=== PATIENT | female | born 1960 | race Caucasian/White ===

== ENCOUNTER → 2016-04-17 | Outpatient (CLI) | payer BC, OTHER ==
--- NOTE | 2016-04-20 06:23 | SLEEPHOME ---
DATE OF PROCEDURE: 04/17/2016 ORDERED BY: Den Sahni MD Diagnostic home sleep testing was performed due to concern for the obstructive sleep apnea syndrome in this patient with a history of excessive somnolence. 9 hours and 59 minutes of data were reviewed. There were 8 hours and 25 minutes identified as time in bed. During the interval marked time in bed, there were 502 respiratory events identified of 10 seconds in duration or greater for a respiratory event index of 59.5. The events were primarily obstructive but mixed and central apneas were also seen. Baseline heart rate 73 beats per minute. Pulse rate ranged 46-107. Baseline saturation 91.5%. Lowest oxygen saturation 62%. Testing was performed in both the supine and non-supine positions. IMPRESSION: Abnormal home sleep testing with repetitive respiratory events and oxygen desaturations to 62% with a respiratory event index of 59.5 is consistent with the obstructive sleep apnea syndrome. RECOMMENDATION: The patient should be referred for formal sleep evaluation and in-laboratory pressure titration.
== END ==
LOC: M SLEEP 10:49
PROVIDERS: ATTEND Internal Medicine Pulmonary Disease
DX: R40.0 Somnolence (principal)

== ENCOUNTER → 2016-07-09 | Outpatient (CLI) | payer OTHER ==
--- NOTE | 2016-07-09 16:04 | REPMRS ---
Patient History The patient states she had a clinical breast exam in 07/23 Patient has history of cervical cancer at age 42 and is nulliparous. Family history of breast cancer in paternal aunt. Taking estrogen for 5 years. Digital Woman Screen Mammo: July 09, 2016 - Exam #: [id number] Bilateral CC and MLO view(s) were taken. Technologist: Kate Preciado, Technologist Prior study comparison: June 20, 2015, digital woman screen mammo performed at [facility]. June 10, 2014, digital woman screen mammo performed at [facility]. October 22, 2012, digital woman screen mammo performed at [facility]. FINDINGS: There are scattered fibroglandular densities. There has been no change in the appearance of the mammogram from the prior studies. There is a mild amount of scattered fibroglandular density which is fairly symmetric. There is no interval development of dominant mass, architectural distortion, or clustered microcalcification suggestive of malignancy. ASSESSMENT: BI-RADS/ACR category 1 mammogram. Negative. Recommendation Routine screening mammogram in 1 year (for women over age 40). This mammogram was interpreted with the aid of an FDA-approved computer-aided dectection system. Electronically Signed By: Kwame Arcos MD 07/09/16 [id number]
== END ==
LOC: M WHC 13:00
PROVIDERS: ATTEND Nurse Practitioner Family
DX: Z12.31 Encounter for screening mammogram for malignant neoplasm of breast (principal)

== ENCOUNTER → 2016-07-09 | Outpatient (REF) | payer OTHER | LOC: M SFHCWAGY 13:44 | PROVIDERS: ATTEND Nurse Practitioner Family | DX: Z12.4 Encounter for screening for malignant neoplasm of cervix (principal) ==

== ENCOUNTER → 2017-01-28 | Outpatient (CLI) | payer OTHER ==
--- NOTE | 2017-01-28 11:58 | REP ---
MRI RIGHT ANKLE: TECHNIQUE: Sagittal proton density, STIR, axial proton density fat sat, T1, coronal proton density, STIR. The Achilles, anterior tibial, posterior tibial, flexor hallucis longus, flexor digitorum longus and peroneal tendons are all intact. Anterior and posterior talofibular, calcaneofibular and deltoid ligaments appear intact. Plantar fascia demonstrates no abnormal signal. There is no evidence of plantar fasciitis. No ganglion cyst is seen. There is a small joint effusion at the tibiotalar joint. No osteochondral lesions are seen at the tibiotalar joint. I see no other significant abnormality aside from some mild superficial soft tissue edema. IMPRESSION: No evidence of tendon or ligament tear. Small joint effusion. No osteochondral defect. Signed by Yemi Seymour MD 01/28/2017 04:31 P
== END ==
LOC: M RAD 09:04
PROVIDERS: ATTEND Podiatrist
DX: M25.471 Effusion, right ankle (principal)

== ENCOUNTER → 2017-09-16 | Outpatient (REF) | payer OTHER | LOC: M SFHCWAGY 09:46 | DX: Z08 Encounter for follow-up examination after completed treatment for malignant neoplasm (principal) | CPT/HCPCS: 88142 ==

== ENCOUNTER → 2017-09-16 | Outpatient (CLI) | payer OTHER | LOC: M WHC 09:12 | DX: Z12.31 Encounter for screening mammogram for malignant neoplasm of breast (principal) | CPT/HCPCS: 77067 ==

== ENCOUNTER → 2018-11-11 | Outpatient (CLI) | payer OTHER ==
--- NOTE | 2018-11-11 13:40 | REPMRS ---
Patient History The patient states she had a clinical breast exam in 11/2018. Patient has history of cervical cancer at age 42 and is nulliparous. Family history of breast cancer in paternal aunt, prostate cancer in maternal uncle, prostate cancer in maternal uncle, prostate cancer in maternal cousin, breast cancer at age 50 in maternal cousin, ovarian cancer at age 50 or over in maternal aunt. Taking estrogen for 7 years. 3D TOMOSYNTHESIS WAS PERFORMED. The [facility] lifetime risk for breast cancer is 16.0 %. Digital Woman Screen Mammo: November 11, 2018 - Exam #: [id number] Bilateral CC and MLO view(s) were taken. Technologist: Kate Preciado, Technologist Prior study comparison: September 16, 2017, digital woman screen mammo performed at [facility]. July 09, 2016, digital woman screen mammo performed at [facility]. FINDINGS: There are scattered fibroglandular densities. There has been no change in the appearance of the mammogram from the prior studies. There is a mild amount of residual fibroglandular tissue which is fairly symmetric. There is no interval development of dominant mass, architectural distortion, or clustered microcalcification suggestive of malignancy. Assessment: BI-RADS/ACR category 1 mammogram. Negative Mammogram. Recommendation Routine screening mammogram in 1 year (for women over age 40). This mammogram was interpreted with the aid of an FDA-approved computer-aided dectection system. Electronically Signed By: Yemi Seymour MD 11/11/18 [id number]
== END ==
LOC: M WHC 11:36
PROVIDERS: ATTEND Nurse Practitioner Family
DX: Z12.31 Encounter for screening mammogram for malignant neoplasm of breast (principal); Z92.23 Personal history of estrogen therapy; Z85.41 Personal history of malignant neoplasm of cervix uteri

== ENCOUNTER → 2018-11-11 | Outpatient (REF) | payer OTHER ==
[2018-11-13 14:51] LABS: HPV HYBRID CAPTURE II Negative (Negative)
== END ==
LOC: M SFHCWAGY 12:15
PROVIDERS: ATTEND Nurse Practitioner Family
DX: Z12.72 Encounter for screening for malignant neoplasm of vagina (principal)

== ENCOUNTER → 2020-01-05 | Outpatient (CLI) | payer OTHER ==
--- NOTE | 2020-01-13 15:16 | REP ---
BILATERAL SCREENING MAMMOGRAM WITH 3D TOMOSYNTHESIS COMPARISON MAMMOGRAM: 11/21/2018, as well as other prior exams. HISTORY: Family history of breast cancer in paternal aunt and maternal cousin. [facility]uz[facility] lifetime risk of breast cancer 15.4%. TECHNIQUE: MLO and CC views of both breasts are performed with 3D tomosynthesis. FINDINGS: There is mild scattered fibroglandular tissue bilaterally. Volpara breast density is A. There is a small, round, well-defined nodule in the lower outer right breast near the nipple best seen on tomographic images. This measures about 5-6 mm in diameter. Otherwise no mass or architectural distortion is seen bilaterally. There are no suspicious clusters of microcalcifications. Coarse benign type calcifications are scattered bilaterally. FINDINGS: ACR 0 incomplete. There is a new round well-defined nodule in the lower outer right breast near the nipple measuring 5-6 mm in diameter. Recommend spot compression views and ultrasound to further evaluate. This mammogram was interpreted with the aid of an FDA approved computer-aided detection system. The patient states her last clinical breast exam was 12/2019. Patient letter: 0. MTDD
== END ==
LOC: M WHC 09:47
PROVIDERS: ATTEND Nurse Practitioner Family
DX: R92.2 Inconclusive mammogram (principal); Z80.3 Family history of malignant neoplasm of breast

== ENCOUNTER → 2020-01-05 | Outpatient (REF) | payer OTHER | LOC: M SFHCWAGY 13:09 | PROVIDERS: ATTEND Nurse Practitioner Family | DX: Z12.72 Encounter for screening for malignant neoplasm of vagina (principal) ==

== ENCOUNTER → 2020-01-12 | Outpatient (CLI) | payer OTHER ==
--- NOTE | 2020-01-19 09:30 | REP ---
DIAGNOSTIC MAMMOGRAM, RIGHT BREAST WITH RIGHT BREAST ULTRASOUND: 01/12/20 Spot compression views of the right breast performed in multiple projections and correlate with the recent mammogram of 01/05/20. The spot compression views confirm the presence of a 5mm well defined nodule in the outer right breast near the nipple. Real time sonographic evaluation of the outer right breast is performed anteriorly. There is a hypoechoic nodule which is well-defined approximately 3cm from the nipple at about 11 oclock. There are internal echoes. There is some distal acoustic shadowing. This represents either a complex cyst or a solid nodule> This is new. IMPRESSION: 1. ACR 4, suspicious. New solid nodule or complex cyst 11 oclock right breast, 3cm from the nipple. Recommend ultrasound guided sampling. Send letter 4. MTDD
== END ==
LOC: M WHC 10:20
PROVIDERS: ATTEND Nurse Practitioner Family
DX: R92.8 Other abnormal and inconclusive findings on diagnostic imaging of breast (principal); N60.01 Solitary cyst of right breast
CPT/HCPCS: 76642; 77065; G0279

== ENCOUNTER → 2020-02-24 | Outpatient (CLI) | payer OTHER ==
[2020-02-24 09:48] VITALS: BP 118/68
--- NOTE | 2020-02-24 10:10 | REP ---
INDICATION: R92.8 ABNORMAL MAMMOGRAM RT BREAST,US GUIDED BX,POST BX. COMPARISON: 01/12/2020. TECHNIQUE: ML and CC views right breast performed following ultrasound-guided cyst aspiration right breast. FINDINGS: Previously noted subcentimeter nodule in the anterior outer right breast is not visualized on today's images. IMPRESSION: Previously noted subcentimeter nodule in the anterior outer right breast is not visualized on today's images status post ultrasound-guided aspiration. RECOMMENDATION: Clinical follow-up. <Electronically signed by Yemi Seymour > 02/24/20 [id number]
--- NOTE | 2020-02-25 18:25 | REP ---
INDICATION: R92.8 ABNORMAL MAMMOGRAM RT BREAST,RT BREAST ASPIRATION. COMPARISON: Ultrasound 01/12/2020. TECHNIQUE: Ultrasound right breast performed in the region of the hare o'clock. FINDINGS: Ultrasound guidance was provided for Dr. Abbott who performed ultrasound-guided biopsy of a subcentimeter nodule at 11 o'clock right breast. IMPRESSION: Ultrasound guidance was provided for Dr. Abbott who performed ultrasound-guided biopsy of a subcentimeter nodule at 11 o'clock right breast. <Electronically signed by Yemi Seymour > 02/25/20 [id number]
--- NOTE | 2020-02-27 16:48 | ROOPDOC ---
[facility] Report Of Operation Report of Operation Date of the procedure:02/24/20 Diagnosis:Right breast complex cyst causing mammographic density Procedure:Aspiration of Right breast complex cyst Proceduralist: Hussain Orozco D.O. EBL: minimal Lidocaine 1% LOT [id number] Expiration: 11/2022 Sodium Bicarbonate 8.4% LOT [id number] Expiration: 01/2021 Procedure details: Informed consent was obtained. The most common risk and possible complications including bleeding, hematoma, bruising, infection, injury to surrounding structures were explained to the patient and she expressed understanding. Patient was taken to the procedure room and placed on the bed in the supine position. Appropriate time out was done stating patients name, date of , and the procedure to be performed. The right breast was prepped and draped in the usual fashion. The ultrasound was used to confirm the location of the painful cyst in the right breast complex cyst causing mammographic density at 11 oclock 3 cm from the nipple. Plain Lidocaine 1% and 8.4% sodium bicarbonate 10:1 mix was used to numb the skin, and tissues along the anticipated aspiration tract. 18 G needle was used to aspirate cyst under direct ultrasound guidance. Aspirated fluid was serous and it was discarded. About 1 cc of fluid was removed. The cyst completely collapsed and images were captured. Manual pressure over the cyst aspiration site and tract was held. No bleeding was noted upon removal of the pressure. Post procedure right breast diagnostic mammogram was done and showed resolution of mammographic abnormality after right breast ultrasound guided complex cyst aspiration. Patient tolerated procedure well. Discharge instructions were discussed with the patient and she expressed understanding. HUSSAIN OROZCO DO Feb 27, 2020 16:48
== END ==
LOC: M WHCPRO 08:46
PROVIDERS: ATTEND Surgery
DX: R92.8 Other abnormal and inconclusive findings on diagnostic imaging of breast (principal)

== ENCOUNTER → 2021-01-10 | Outpatient (REF) | payer OTHER | LOC: M SFHCWAGY 18:04 | PROVIDERS: ATTEND Nurse Practitioner Women's Health | DX: Z12.4 Encounter for screening for malignant neoplasm of cervix (principal) ==

== ENCOUNTER → 2021-01-10 | Outpatient (CLI) | payer OTHER ==
--- NOTE | 2021-01-10 15:11 | REPMRS ---
Patient History The patient states she had a clinical breast exam in 2020. Patient has history of other cancer at age 42 and is nulliparous. Family history of breast cancer in paternal aunt, prostate cancer in maternal uncle, prostate cancer in maternal uncle, prostate cancer in maternal cousin, breast cancer at age 50 in maternal cousin, ovarian cancer at age 50 or over in maternal aunt. Taking estrogen for 8 years. No breast complaints today Patient signed the MRS sheet 1st covid vaccine 04/11/20-left arm-Pfizer 2nd covid vaccine 04/30/20-left arm Priors on PACS Patient Identification Verified Digital Woman Screen Mammo: January 10, 2021 - Exam #: [id number] Bilateral CC and MLO view(s) were taken. Technologist: Ion Swainologist Prior study comparison: January 05, 2020, bilateral digital woman screen mammo performed at [facility]. November 11, 2018, bilateral digital woman screen mammo performed at [facility]. September 16, 2017, digital woman screen mammo performed at [facility]. FINDINGS: The breast tissue is almost entirely fat. The Volpara volumetric breast density category is: A. There has been no change in the appearance of the mammogram from the prior studies. There is no interval development of dominant mass, architectural distortion, or grouped microcalcification typical of malignancy. 3-D tomosynthesis shows no additional findings. Assessment: BI-RADS/ACR category 1 mammogram. Negative Mammogram. Recommendation Routine screening mammogram of both breasts in 1 year (for women over age 40). This patient's [facility] Lifetime Breast Cancer RIsk is estimated at 14.9 %. This mammogram was interpreted with the aid of an FDA-approved computer-aided dectection system. Electronically Signed By: Kwame Arcos MD 01/10/21 [id number]
== END ==
LOC: M WHC 13:59
PROVIDERS: ATTEND Nurse Practitioner Women's Health
DX: Z12.31 Encounter for screening mammogram for malignant neoplasm of breast (principal)

== ENCOUNTER → 2021-10-16 | Outpatient (CLI) | payer OTHER | LOC: M WHC 07:59 | PROVIDERS: ATTEND Surgery | DX: N63.20 Unspecified lump in the left breast, unspecified quadrant (principal); R59.0 Localized enlarged lymph nodes | CPT/HCPCS: 76642; 77065; G0279 ==

== ENCOUNTER → 2022-01-15 | Outpatient (REF) | payer OTHER | LOC: M SFHCWAGY 10:31 | PROVIDERS: ATTEND Nurse Practitioner Family | DX: Z12.4 Encounter for screening for malignant neoplasm of cervix (principal) ==

== ENCOUNTER → 2022-01-15 | Outpatient (CLI) | payer OTHER | LOC: M WHC 14:01 | PROVIDERS: ATTEND Nurse Practitioner Family | DX: Z12.31 Encounter for screening mammogram for malignant neoplasm of breast (principal) ==

== ENCOUNTER → 2023-01-23 | Outpatient (REF) | payer OTHER | LOC: M SFHCWAGY 13:22 | PROVIDERS: ATTEND Nurse Practitioner Family | DX: Z12.4 Encounter for screening for malignant neoplasm of cervix (principal) ==

== ENCOUNTER → 2024-01-29 | Outpatient (REF) | payer BC | LOC: M SFHCWAGY 13:31 | PROVIDERS: ATTEND Nurse Practitioner Family | DX: Z12.4 Encounter for screening for malignant neoplasm of cervix (principal); Z77.9 Other contact with and (suspected) exposures hazardous to health | CPT/HCPCS: 87624; G0123 ==

== ENCOUNTER → 2024-01-29 | Outpatient (CLI) | payer BC | LOC: M WHC 08:48 | PROVIDERS: ATTEND Nurse Practitioner Family | DX: Z12.31 Encounter for screening mammogram for malignant neoplasm of breast (principal) ==

== ENCOUNTER → 2025-02-03 | Outpatient (CLI) | payer BC, MEDICARE | LOC: M WHC 11:10 | PROVIDERS: ATTEND Physician Assistant | DX: Z12.31 Encounter for screening mammogram for malignant neoplasm of breast (principal); R92.313 Mammographic fatty tissue density, bilateral breasts ==

== ENCOUNTER → 2025-02-03 | Outpatient (REF) | payer MEDICARE | LOC: M PLALAB 12:05 | PROVIDERS: ATTEND Physician Assistant | DX: Z08 Encounter for follow-up examination after completed treatment for malignant neoplasm (principal); Z01.419 Encounter for gynecological examination (general) (routine) without abnormal findings | CPT/HCPCS: 87624; G0123 ==